=== PATIENT | female | born 1955 | race Caucasian/White ===

== ENCOUNTER 2022-12-05 18:00 | Emergency (ER) | payer BC, OTHER ==
[~2022-12-05] VITALS: Ht 162.6 cm; Wt 83.9 kg
[~2022-12-05 18:00] MED LIST: SYN75 PO
[2022-12-05 18:05] VITALS: BP_SYST 181
--- NOTE | 2022-12-05 18:10 | NUR ---
Patient triaged and placed in waiting room. VSS and patient appears in no acute distress at this time. Accompanied by SPOUSE, awaiting available bed, and MD notified of need for MSE.
--- NOTE | 2022-12-05 20:20 | NUR ---
Patient placed in ER CHAIR 1 for evaluation. Report given to GERA RODRIGUEZ for continuity of care. Instructed to notify ED staff for any changes in condition or worsening of symptoms. Patient verbalized understanding.
--- NOTE | 2022-12-05 20:25 | NUR ---
Dr. ROBLEDO at bedside examining the patient.
[2022-12-05] MEDS ORDERED: FLUT16SP16 NS (20:28)
[2022-12-05] MEDS ORDERED: HYDR-3698 PO (20:28)
[2022-12-05] MEDS ORDERED: IBUP-1969 PO (20:42)
[2022-12-05 20:43] VITALS: BP_SYST 136
--- NOTE | 2022-12-05 20:43 | NUR ---
Patient given written and verbal discharge instructions and verbalizes understanding. ER MD discussed with patient the results and treatment provided. Patient in stable condition. ID arm band removed. Rx of FLUTICASONE AND HYDROXYZINE given. Patient educated on pain management and to follow up with PMD. Pain Scale 0/10. Opportunity for questions provided and answered. Medication side effect fact sheet provided.
== END 2022-12-05 20:43 | disposition home or self-care (01) ==
LOC: SED 18:00
DX: J32.9 Chronic sinusitis, unspecified (principal); F41.9 Anxiety disorder, unspecified; T42.6X5A Adverse effect of other antiepileptic and sedative-hypnotic drugs, initial encounter; I10 Essential (primary) hypertension; Z88.0 Allergy status to penicillin; Z88.5 Allergy status to narcotic agent; Z79.899 Other long term (current) drug therapy; Y92.89 Other specified places as the place of occurrence of the external cause
CPT/HCPCS: 99283